=== PATIENT | female | born 1990 | race Caucasian/White ===

== ENCOUNTER → 2016-11-02 | Outpatient (CLI) | payer OTHER ==
--- NOTE | 2016-11-02 15:54 | US ---
EXAMINATION TYPE: US pelvic complete DATE OF EXAM: 11/02/2016 COMPARISON: NONE CLINICAL HISTORY: N91.2 Amenorrhea. TECHNIQUE: Transabdominal (TA) Date of LMP: June 2016 EXAM MEASUREMENTS: Uterus: 9.7 x 2.9 x 4.2 cm Endometrial Stripe: 0.9 cm Right Ovary: 3.8 x 3.4 x 2.2 cm Left Ovary: 3.3 x 3.3 x 2.5 cm 1. Uterus: Anteverted wnl 2. Endometrium: measures 0.9 cm, patient has not had a cycle since June. 3. Right Ovary: wnl 4. Left Ovary: wnl 5. Bilateral Adnexa: wnl 6. Posterior cul-de-sac: no free fluid Urinary bladder is sonolucent. Posterior wall is normal. IMPRESSION: 1. Normal pelvic ultrasound
== END | disposition home or self-care (01) ==
LOC: RADUSWWP 15:04
PROVIDERS: ATTEND Obstetrics & Gynecology
DX: N91.2 Amenorrhea, unspecified (principal)
CPT/HCPCS: 76856

== ENCOUNTER 2017-12-16 16:19 | Outpatient (CLI) | payer OTHER ==
[2017-12-16 16:57] VITALS: BP 125/94; PULSE 90; RESP 16; TEMP 98.6
[2017-12-16] MEDS ORDERED: ceFAZolin 2,000 MG in DEXTROSE/WATER 1 50ML.BAG IVPB STA (17:32)
[2017-12-16] MEDS ORDERED: LACTATED RINGERS 1,000 ML IV SCH (17:45)
[2017-12-16] MEDS ORDERED: ceFAZolin IN SWFI 2 GM/20 ML SYRINGE IVP ONE (17:45)
[2017-12-16 18:14] LABS: Appearance,Urine Clear (Clear); Bacteria,Urine Rare /hpf; Bilirubin,Urine Negative (Negative); Blood,Urine Moderate (Negative); Color,Urine Yellow; Glucose,Urine (UA) Negative (Negative); Hyaline Casts,Urine 1 /lpf (0-2); Ketones,Urine Negative (Negative); Leukocyte Esterase,Urine Trace (Negative); Mucus,Urine Rare /hpf; Nitrite,Urine Negative (Negative); Protein,Urine Trace (Negative); RBC,Urine 105 /hpf (0-5); Squamous Epithelial Cell,Urine 2 /hpf (0-4); Urobilinogen,Urine <2.0 mg/dL (<2.0); WBC,Urine 1 /hpf (0-5)
--- NOTE | 2017-12-17 11:17 | P.MSEPDOC ---
Presenting Problems - Arrival Data Date of Arrival on Unit: 12/16/17 Time of Arrival on Unit: 16:20 Mode of Transport: Wheelchair - Complaint OB-Reason for Admission/Chief Complaint: Possible Onset of Labor, Other Comment: uti, contx Medical History - Information : 2 Para: 1 Term: 1 : 0 Abortions: Spontaneous or Elective: 0 Number of Living Children: 1 - Gestational Age Gestational Age by ELMER (wks/days): 37 Weeks and 0 Days - History Complications: Other Comment: going to be a ceserean section this time due to 4th degree and shoulders got stuck with last baby Review of Systems - Review of Systems Constitutional: No problems Breast: No problems ENT: No problems Cardiovascular: No problems Respiratory: No problems Gastrointestinal: No problems Genitourinary: No problems Musculoskeletal: No problems Neurological: No problems Skin: No problems Comment: hx asthma in past Vital Signs - Temperature Temperature: 98.6 F Temperature Source: Tympanic - Pulse Right Radial Pulse Rate: 90 Pulse Assessment Method: Auscultation - Respirations Respiratory Rate: 16 Oxygen Delivery Method: Room Air - Blood Pressure Right Arm Blood Pressure: 125/94 Blood Pressure Mean: 104 Blood Pressure Source: Automatic Cuff Medical Screen Scoring (Pre) - Cervical Exam Dilation: 1-3 cm = 1 Membranes: Intact - Uterine Contractions Frequency: > 5 minutes apart = 1 Duration: > 40 seconds = 2 Intensity: Contraction palpated strong = 1 - Maternal Vital Signs Maternal Temperature: N/A Maternal Blood Pressure: N/A Signs of Preeclampsia: N/A Maternal Respirations: N/A - Pain Assessment Pain Location and Character: Left, Lower Pain Scale Used: Numeric (1 - 10) Pain Intensity: 9 Pain Description: *Acute, Sharp Pain Frequency: Intermittent Pain Behavior: Vocalization Pain Aggravating Factors: Activity, Contractions - Maternal Trauma Maternal Trauma: N/A - Assessment Baseline FHR: 120 Heart Rate - NICHD Category: Category I (Normal) = 0 NST: Reactive Position: N/A Station: N/A - Total Score Total Score (Pre): 5 - Level of Risk Level of Risk: Low (0-5) Physician Notification (Pre) - Physician Notified Physician Notified Date: 12/16/17 Physician Notified Time: 16:45 Physician/Practitioner Notifed:: nichole Spoke With: nichole New Order Received: Yes - Notification Comment Comment: iv hydration. dose of kefzol iv given. warm blanket to lt side Disposition - Disposition OB Disposition: Discharge to home Discharge Date: 12/16/17 Discharge Time: 19:15 I agree with the RN Medical Screening Exam: Yes Risk & Benefit of care provided described in d/c instruction: Yes Diagnosis: FALSE LABOR AT OR AFTER 37 COMPLETED WEEKS OF GESTATION
== END 2017-12-16 19:15 | disposition home or self-care (01) ==
LOC: FBPOP 16:19
PROVIDERS: ATTEND Obstetrics & Gynecology
DX: O47.1 False labor at or after 37 completed weeks of gestation (principal); Z3A.37 37 weeks gestation of pregnancy
CPT/HCPCS: 59025; 99214; 96361; 96365; 81001; 87086; J0690; 96366

== ENCOUNTER 2017-12-26 19:13 | Inpatient (IN) | payer OTHER ==
[2017-12-26 19:58] LABS: Appearance,Urine Cloudy (Clear); Bacteria,Urine Many /hpf; Bilirubin,Urine Negative (Negative); Blood,Urine Negative (Negative); Color,Urine Light Yellow; Glucose,Urine (UA) Negative (Negative); Ketones,Urine Negative (Negative); Leukocyte Esterase,Urine Small (Negative); Mucus,Urine Rare /hpf; Nitrite,Urine Negative (Negative); Protein,Urine 1+ (Negative); RBC,Urine 1 /hpf (0-5); Specific Gravity,Urine 1.008 (1.001-1.035); Squamous Epithelial Cell,Urine 2 /hpf (0-4); Urobilinogen,Urine <2.0 mg/dL (<2.0); WBC,Urine 3 /hpf (0-5)
[2017-12-26 20:37] LABS: Basophils % (A) 0 %; Eosinophils # (A) 0.1 k/uL (0-0.7); Eosinophils % (A) 1 %; HCT 35.4 % (34.0-46.0); HGB 11.7 gm/dL (11.4-16.0); Lymphocytes # (A) 1.6 k/uL (1.0-4.8); Lymphocytes % (A) 17 %; MCH 30.8 pg (25.0-35.0); MCHC 33.1 g/dL (31.0-37.0); MCV 93.1 fL (80.0-100.0); Mean Platelet Volume 10.1; Monocytes # (A) 0.5 k/uL (0-1.0); Monocytes % (A) 6 %; Neutrophils # (A) 6.8 k/uL (1.3-7.7); Neutrophils % (A) 74 %; Platelet Count 202 k/uL (150-450); RDW 14.5 % (11.5-15.5); WBC 9.2 k/uL (3.8-10.6)
[2017-12-26 20:45] LABS: INR 0.9 (<1.2); Prothrombin Time 9.4 sec (9.0-12.0)
[2017-12-26 20:47] LABS: ALT 33 U/L (9-52); AST 22 U/L (14-36); Blood Urea Nitrogen 8 mg/dL (7-17); LDH 399 U/L (313-618); Uric Acid 5.6 mg/dL (3.7-7.4)
[2017-12-26 21:10] LABS: Partial Thromboplastin Time 20.7 sec (22.0-30.0)
[2017-12-26] MEDS ORDERED: CITRIC ACID-SODIUM CITRATE 15 ML CUP PO ONE (21:21)
[2017-12-26] MEDS ORDERED: LACTATED RINGERS 1,000 ML IV ONE (21:21)
[2017-12-26] MEDS ORDERED: ceFAZolin IN SWFI 2 GM/20 ML SYRINGE IVP ONE (21:21)
[2017-12-26 21:56] VITALS: BMI 34.2
--- NOTE | 2017-12-26 22:14 | P.HPOB ---
History of Present Illness H&P Date: 12/26/17 This is a 27-year-old female 2 para 1 with an estimated date of confinement of 01/11/2018, estimated gestational age of 37-5/7 weeks, who presented to labor and delivery with complaints of elevated blood pressures today. She complained of feeling flush and slightly dizzy. She denied any headaches or blurry vision. Her care has been with Dr. De Jesus and has been essentially uncomplicated up until this point. She did state she was dealing with kidney stone pain last week. She denies any significant back or kidney pain at this time. She denies any regular contractions. She is scheduled for a section with tubal ligation due to the fact she had a shoulder dystocia and fourth degree laceration with her last delivery. All of her lab work is within normal limits and she has 1+ protein in her urine area labs: Hepatitis B surface antigen-negative RPR-nonreactive Rubella-immune Blood type-O+ Antibody screen-negative Hemoglobin-11.5 Toxoplasma screen-negative Random glucose-101 Quad screen-negative One hour Glucola-91 Group B streptococcus-negative Obstetrical history: . History of 1 vaginal delivery at 39 weeks with an weight of 9 pounds and fourth degree laceration with shoulder dystocia. Review of Systems Constitutional: Denies chills, Denies fever Eyes: denies blurred vision, denies pain Ears, nose, mouth and throat: Denies headache, Denies sore throat Cardiovascular: Denies chest pain, Denies shortness of breath Respiratory: Denies cough Gastrointestinal: Denies abdominal pain, Denies diarrhea, Denies nausea, Denies vomiting Genitourinary: Reports Musculoskeletal: Reports low back pain Neurological: Denies numbness, Denies weakness Psychiatric: Denies anxiety, Denies depression Endocrine: Reports flushing Past Medical History Past Medical History: No Reported History History of Any Multi-Drug Resistant Organisms: None Reported Additional Past Surgical History / Comment(s): eye surgery Past Anesthesia/Blood Transfusion Reactions: No Reported Reaction Past Psychological History: No Psychological Hx Reported Smoking Status: Never smoker Past Alcohol Use History: None Reported Past Drug Use History: None Reported - Past Family History Mother Family Medical History: Hypertension Medications and Allergies Home Medications Medication Instructions Recorded Confirmed Type Pnv,Calcium 72/Iron/Folic Acid 1 tab PO DAILY 12/16/17 12/26/17 History [ Plus Tablet] Allergies Allergy/AdvReac Type Severity Reaction Status Date / Time No Known Allergies Allergy Verified 12/26/17 19:22 Exam Osteopathic Statement: *. No significant issues noted on an osteopathic structural exam other than those noted in the History and Physical/Consult. Vital Signs Temp Pulse Resp BP Pulse Ox 12/26/17 21:51 151/93 12/26/17 21:17 154/101 12/26/17 20:26 98.0 F 101 H 17 160/101 97 Intake and Output 12/26/17 12/26/17 12/26/17 06:59 14:59 22:59 Other: Weight 84.822 kg HEENT: Within normal limits Heart: Regular rate and rhythm Lungs: Clear to auscultation bilaterally Abdomen: heart tones: Reactive Contractions: Irregular Extremities: 2+ over 4 reflexes with negative edema Results Result Diagrams: 12/26/17 20:22 12/26/17 20:22 Abnormal Lab Results - Last 24 Hours (Table) 12/26/17 12/26/17 12/26/17 Range/Units 19:25 20:22 20:22 APTT 20.7 L (22.0-30.0) sec Creatinine 0.43 L (0.52-1.04) mg/dL Urine Appearance Cloudy H (Clear) Urine Protein 1+ H (Negative) Ur Leukocyte Esterase Small H (Negative) Urine Bacteria Many H (None) /hpf Urine Mucus Rare H (None) /hpf Assessment and Plan (1) Gestational hypertension affecting second Current Visit: Yes Status: Acute Code(s): O13.9 - GESTATIONAL HTN W/O SIGNIFICANT PROTEINURIA, UNSP TRIMESTER SNOMED Code(s): 42136976 (2) Family planning Current Visit: Yes Status: Acute Code(s): Z30.09 - ENCOUNTER FOR OTH GENERAL CNSL AND ADVICE ON CONTRACEPTION SNOMED Code(s): 774586445 Plan: Will proceed to delivery since she is over 37 weeks and has a minimum of gestational hypertension versus preeclampsia. She has spoken with Dr. De Jesus and does plan to have tubal ligation at the time of delivery also. I have discussed the risks, benefits, and alternative therapies for the above- mentioned procedure and for both sedation/anesthesia as well as necessary blood products administration, if indicated, as they pertain to this patient. The patient has indicated her understanding and acceptance of the risks and procedures discussed.
[2017-12-26] MEDS ORDERED: ePHEDrine SULFATE/0.9% NACL/PF 50 MG/5 ML SYRINGE IV ONE (22:27)
[2017-12-26] MEDS ORDERED: OXYTOCIN 10 UNIT/ML 1 ML VIAL ONE (22:27)
[2017-12-26] MEDS ORDERED: KETOROLAC 30 MG/ML 1 ML VIAL ONE (22:27)
[2017-12-26] MEDS ORDERED: LACTATED RINGERS 1,000 ML BAG IV ONE (22:27)
[2017-12-26] MEDS ORDERED: ONDANSETRON 4 MG/2 ML VIAL ONE (22:27)
[2017-12-26] MEDS ORDERED: NALBUPHINE 10 MG/ML VIAL (10ML MDV) ONE (22:27)
[2017-12-26] MEDS ORDERED: MORPHINE SULFATE (PF) 0.3 MG/0.3 ML SYR ONE (22:27)
[2017-12-26] MEDS ORDERED: fentaNYL (PF) 50 MCG/ML 2 ML AMP ONE (22:27)
[2017-12-26] MEDS: LACTATED RINGERS 1,000 ML IV SCH (22:40)
[2017-12-26] MEDS ORDERED: NALBUPHINE 10 MG/ML VIAL (10ML MDV) IV PRN (23:02)
[2017-12-26] MEDS ORDERED: MORPHINE SULFATE 2 MG/ML SYRINGE IVP PRN (23:02)
[2017-12-26] MEDS ORDERED: NALOXONE 0.4 MG/ML 1 ML VIAL IV PRN (23:02)
[2017-12-26] MEDS ORDERED: diphenhydrAMINE 50 MG/ML 1 ML VIAL IVP PRN (23:02)
[2017-12-26] MEDS ORDERED: ONDANSETRON 4 MG/2 ML VIAL IVP PRN (23:02)
--- NOTE | 2017-12-26 23:26 | P.OP ---
Date of Procedure: 12/26/17 Preoperative Diagnosis: 1. Intrauterine at 37-5/7 weeks. 2. Gestational hypertension versus preeclampsia. 3. History of fourth degree laceration and shoulder dystocia with her previous delivery. 4. Family-planning. Postoperative Diagnosis: Same Procedure(s) Performed: Primary low transverse section with bilateral partial salpingectomy Anesthesia: spinal (Duramorph) Surgeon: Jennifer Meeks Print[employer] Estimator #1: Ruben Buckley Estimated Blood Loss (ml): 600 Pathology: other (Placenta, portions of right and left fallopian tubes) Condition: stable Disposition: floor Indications for Procedure: This is a 27-year-old female 2 para 1 at 37-5/7 weeks who presented to triage with complaints of elevated blood pressures. Her blood pressures ranged from 130s to 160 over 90s to 100. All of her labs were negative other than she did have 1+ protein. She denied any other symptoms other than some flushing and lightheadedness. Since she is over 37 weeks with these blood pressures, the decision is made to proceed with delivery. She had already discussed with Dr. De Jesus doing a section because of her history of shoulder dystocia and fourth degree laceration. She also had discussed with him regarding a tubal ligation. I have discussed the risks, benefits, and alternative therapies for the above- mentioned procedure and for both sedation/anesthesia as well as necessary blood products administration, if indicated, as they pertain to this patient. The patient has indicated her understanding and acceptance of the risks and procedures discussed. Operative Findings: A viable male infant is noted in the vertex presentation with scores of 8 at 1 minute and 9 at 5 minutes and infant weight of 7 lbs. 0 oz. Normal uterus tubes and ovaries are noted. Description of Procedure: The patient is taken to the operating room where she is placed in the dorsal supine position with leftward tilt after spinal Duramorph anesthesia is given. She is prepped and draped in the normal sterile fashion. Skin was tested and found to be adequately anesthetized. A Pfannenstiel skin incision was made with a scalpel. A second knife was used to carry the incision down to the underlying layer of fascia. The fascia was nicked in the midline with a scalpel and then extended laterally bilaterally with Flynn scissors. The anterior lip of the fascia was grasped with 2 Gianni clamps and then dissected off the underlying rectus muscle in the midline with Flynn scissors. The inferior aspect of the fascial incision was grasped with 2 Gianni clamps and dissected off the underlying rectus muscle and the midline with Flynn scissors. Next the peritoneum layer was tented up with 2 hemostats and then entered sharply with the scalpel. The incision is extended superiorly and inferiorly with Metzenbaum scissors. Next a DeLee retractor is placed. The vesicouterine peritoneum is entered sharply with Metzenbaum scissors and extended laterally bilaterally with Metzenbaum scissors and then the bladder flap is pushed inferiorly. The lower uterine segment is incised in transverse fashion with the scalpel and then bluntly entered with a hemostat. Clear fluid is noted. The incision was then extended laterally bilaterally with 2 fingers. Next the infant's head is delivered through the incision. Nose and mouth are bulb suctioned. The remainder of the is easily delivered and placed on mother 's abdomen. Cord is clamped and cut. is taken to warmer by nursing staff. Uterine fundus is gently massaged and placenta is delivered manually. Uterus is exteriorized and cleared of all clots and debris. Uterine incision is closed with 0 Vicryl suture in a running locked fashion. A second layer of 0 Vicryl suture is used in a running fashion for hemostasis. Several interrupted stitches are placed for hemostasis. Once adequate hemostasis as assured, the vesicouterine peritoneum is reapproximated with 2-0 Vicryl suture in a running fashion. The right fallopian tube is grasped in the midportion with a hemostat. The mesosalpinx is entered with Bovie cautery. 0 Vicryl suture is tied 2 times around both the proximal and distal portion of the tube. The knuckle of the tube is then removed with Metzenbaum scissors. The ends of the tubes are cauterized with Bovie cautery. Next the same procedure is carried out on the left fallopian tube. Excellent hemostasis is noted. Posterior cul-de-sac is suctioned of all clots and debris. Uterus is returned to the abdomen. Incision is noted to be hemostatic. Both tubal segments are noted to be hemostatic. Peritoneal layer is closed with 0 Vicryl suture in a running fashion. Muscle layer is reapproximated with 0 Vicryl suture in interrupted fashion. Fascia layer is then closed with 0 PDS suture with 2 sutures meeting in the midline and the knots buried in either side and in the midline. The subcutaneous tissue was then closed with 2-0 Vicryl suture. Skin layer was then closed with jose. All sponge and needle counts are correct. The patient is taken to recovery room in stable condition.
--- NOTE | 2017-12-26 23:28 | P.MSEPDOC ---
Presenting Problems - Arrival Data Date of Arrival on Unit: 12/26/17 Time of Arrival on Unit: 21:17 Mode of Transport: Ambulatory - Complaint OB-Reason for Admission/Chief Complaint: PIH Comment: Presents to triage for evaluation of blood pressure after getting a blood pressure of 135/90 at home. Complains of mild dizziness. Medical History - Information : 2 Para: 1 Term: 1 : 0 Abortions: Spontaneous or Elective: 0 Number of Living Children: 1 - Gestational Age Gestational Age by ELMER (wks/days): 37 Weeks and 5 Days Review of Systems - Review of Systems Constitutional: No problems Breast: No problems ENT: No problems Cardiovascular: No problems Respiratory: No problems Gastrointestinal: No problems Genitourinary: No problems Musculoskeletal: No problems Neurological: Dizziness Skin: No problems Vital Signs - Temperature Temperature: 98.0 F Temperature Source: Temporal Artery Scan - Pulse Pulse Oximetery Pulse Rate: 101 Pulse Assessment Method: Pulse Oximetry - Respirations Respiratory Rate: 17 Oxygen Delivery Method: Room Air O2 Sat by Pulse Oximetry: 97 - Blood Pressure Right Arm Blood Pressure: 151/93 Blood Pressure Mean: 112 Blood Pressure Source: Automatic Cuff Medical Screen Scoring (Pre) - Cervical Exam Dilation: Exam Deferred Effacement: Exam Deferred Membranes: Intact - Uterine Contractions Frequency: > 5 minutes apart = 1 Duration: N/A Intensity: N/A - Maternal Vital Signs Maternal Temperature: N/A Maternal Blood Pressure: Systolic >139 = 2 Signs of Preeclampsia: N/A Maternal Respirations: N/A - Pain Assessment Pain Scale Used: Numeric (1 - 10) Pain Intensity: 0 - Maternal Trauma Maternal Trauma: N/A - Assessment Baseline FHR: 130 Heart Rate - NICHD Category: Category I (Normal) = 0 NST: Reactive Position: N/A Station: N/A - Total Score Total Score (Pre): 3 - Level of Risk Level of Risk: Low (0-5) Physician Notification (Pre) - Physician Notified Physician Notified Date: 12/26/17 Physician Notified Time: 19:13 Physician/Practitioner Notifed:: Constantino Spoke With: Constantino New Order Received: Yes - Notification Comment Comment: [facility] labs Medical Screen Scoring (Post) - Cervical Exam Dilation: Exam Deferred Effacement: Exam Deferred Membranes: Intact - Uterine Contractions Frequency: > 5 minutes apart = 1 Duration: N/A Intensity: N/A - Maternal Vital Signs Maternal Temperature: N/A Maternal Blood Pressure: Systolic >139 = 2 Signs of Preeclampsia: N/A Maternal Respirations: N/A - Pain Assessment Pain Scale Used: Numeric (1 - 10) Pain Intensity: 0 - Maternal Trauma Maternal Trauma: N/A - Assessment Heart Rate: 130 Heart Rate - NICHD Category: Category I (Normal) = 0 NST: Reactive Position: N/A Station: N/A - Total Score Total Score (Post): 3 - Post Treatment Level of Risk Post Treatment Level of Risk: Low (0-5) Physician Notification (Post) - Physician Notified Physician Notified Date: 12/26/17 Physician Notified Time: 21:17 Physician/Practitioner Notified:: Constantino Spoke With: Constantino Hackett Order Received: Yes (prep for delivery) Disposition - Disposition OB Disposition: Admit I agree with the RN Medical Screening Exam: Yes Risk & Benefit of care provided described in d/c instruction: Yes Diagnosis: GESTATIONAL HTN W/O SIGNIFICANT PROTEINURIA, THIRD TRIMESTER
[2017-12-27] MEDS ORDERED: ACETAMINOPHEN IV (For NPO) 1,000 MG in EMPTY BAG 1 BAG IVPB ONE (01:02)
[2017-12-27] MEDS ORDERED: ACETAMINOPHEN TAB 325 MG TAB PO PRN (04:11)
[2017-12-27] MEDS ORDERED: diphenhydrAMINE 25 MG CAP PO PRN (04:11)
[2017-12-27] MEDS ORDERED: ONDANSETRON 4 MG/2 ML VIAL IVP PRN (04:11)
[2017-12-27] MEDS ORDERED: LANOLIN CREAM 5 GM TUBE TOPICAL PRN (04:11)
[2017-12-27] MEDS ORDERED: OXYTOCIN 20 UNITS/1000 ML NS 1,000 ML IV SCH (04:11)
[2017-12-27] MEDS ORDERED: IBUPROFEN 600 MG TAB PO PRN (04:11)
[2017-12-27] MEDS ORDERED: diphenhydrAMINE 50 MG/ML 1 ML VIAL IVP PRN ×2 (04:11)
[2017-12-27] MEDS ORDERED: NALOXONE 0.4 MG/ML 1 ML VIAL IV PRN (04:11)
[2017-12-27] MEDS ORDERED: ZOLPIDEM 5 MG TAB PO PRN (04:11)
[2017-12-27] MEDS ORDERED: METOCLOPRAMIDE 5 MG/ML 2 ML VIAL IVP PRN (04:11)
[2017-12-27] MEDS ORDERED: KETOROLAC 30 MG/ML 1 ML VIAL IVP PRN (04:11)
[2017-12-27] MEDS ORDERED: LABETALOL 200 MG TAB PO PRN (04:11)
[2017-12-27] MEDS ORDERED: diphenhydrAMINE 50 MG CAP PO PRN (04:11)
[2017-12-27] MEDS ORDERED: HYDROcodone/APAP 5-325MG 1 EACH TAB PO PRN (04:11)
[2017-12-27] MEDS ORDERED: SIMETHICONE 80 MG CHEWABLE PO PRN (04:11)
[2017-12-27] MEDS: LACTATED RINGERS 1,000 ML IV SCH ×3 (06:39→22:00)
[2017-12-27 07:55] LABS: Basophils % (A) 0 %; Eosinophils % (A) 0 %; HCT 32.1 % (34.0-46.0); HGB 10.6 gm/dL (11.4-16.0); Lymphocytes # (A) 0.8 k/uL (1.0-4.8); Lymphocytes % (A) 8 %; MCHC 33.1 g/dL (31.0-37.0); MCV 93.6 fL (80.0-100.0); Mean Platelet Volume 9.8; Monocytes # (A) 0.6 k/uL (0-1.0); Monocytes % (A) 6 %; Neutrophils # (A) 8.9 k/uL (1.3-7.7); Neutrophils % (A) 85 %; Platelet Count 170 k/uL (150-450); RBC 3.43 m/uL (3.80-5.40); RDW 14.5 % (11.5-15.5); WBC 10.5 k/uL (3.8-10.6)
[2017-12-27] MEDS: KETOROLAC 30 MG/ML 1 ML VIAL IVP PRN ×2 (08:23→14:40)
[2017-12-27] MEDS: SENNOSIDES-DOCUSATE SODIUM 1 EACH TAB PO SCH ×2 (08:23→20:20)
--- NOTE | 2017-12-27 08:47 | P.PNOBGPC ---
Subjective - Subjective Principal diagnosis: Post op day 1: Gestational hypertension Interval history: Overall Nunu is doing well this morning. Her blood pressure seems to be slightly improved with less blood pressure in the 140/78 range she voices no other complaints other than being tired and overall she is doing well. Vital signs are otherwise stable. Patient reports: Reports appetite normal, Reports voiding normally, Reports pain well controlled, Reports ambulating normally [place]: doing well Objective - Vital Signs Latest vital signs: Vital Signs Temp Pulse Resp BP Pulse Ox 12/27/17 08:19 18 12/27/17 06:00 16 12/27/17 04:00 98.2 F 95 17 143/78 97 12/27/17 02:02 16 12/27/17 01:28 98.2 F 78 15 158/100 100 12/27/17 00:58 73 15 150/94 100 12/27/17 00:28 76 17 153/91 100 12/27/17 00:13 72 18 132/84 100 12/27/17 00:02 15 95 12/26/17 23:58 83 18 145/93 95 12/26/17 23:43 90 16 142/86 98 12/26/17 23:28 98.0 F 101 H 17 151/93 97 12/26/17 23:28 96.7 F L 83 17 142/86 98 12/26/17 21:51 151/93 12/26/17 21:17 154/101 12/26/17 20:26 98.0 F 101 H 17 160/101 97 Intake and Output 12/26/17 12/27/17 12/27/17 22:59 06:59 14:59 Output Total 500 Balance -500 Output: Urine 500 Uretheral (Z[place]ala) 100 Other: Voiding Method Indwelling Catheter Weight 84.822 kg - Exam Lungs: bilateral: normal Chest: Normal S1, Normal S2 Extremities: Present: normal Abdomen: Present: normal appearance, soft. Absent: distention, tenderness Incision: Present: normal, dry, intact Uterus: Present: normal, firm - Labs Labs: Abnormal Lab Results - Last 24 Hours (Table) 12/26/17 12/26/17 12/26/17 Range/Units 19:25 20:22 20:22 RBC (3.80-5.40) m/uL Hgb (11.4-16.0) gm/dL Hct (34.0-46.0) % Neutrophils # (1.3-7.7) k/uL Lymphocytes # (1.0-4.8) k/uL APTT 20.7 L (22.0-30.0) sec Creatinine 0.43 L (0.52-1.04) mg/dL Urine Appearance Cloudy H (Clear) Urine Protein 1+ H (Negative) Ur Leukocyte Esterase Small H (Negative) Urine Bacteria Many H (None) /hpf Urine Mucus Rare H (None) /hpf 12/27/17 Range/Units 07:21 RBC 3.43 L (3.80-5.40) m/uL Hgb 10.6 L (11.4-16.0) gm/dL Hct 32.1 L (34.0-46.0) % Neutrophils # 8.9 H (1.3-7.7) k/uL Lymphocytes # 0.8 L (1.0-4.8) k/uL APTT (22.0-30.0) sec Creatinine (0.52-1.04) mg/dL Urine Appearance (Clear) Urine Protein (Negative) Ur Leukocyte Esterase (Negative) Urine Bacteria (None) /hpf Urine Mucus (None) /hpf
--- NOTE | 2017-12-27 11:05 | P.PN ---
Progress Note - Text Anesthesia POD 1. Patient is status post section under spinal anesthesia with intra-thecal preservative free morphine 300 g. Mild pruritus, GERD post-op analgesia, and no headache or other complication.
[2017-12-27 21:27] VITALS: RESP 16
[2017-12-28] MEDS: HYDROcodone/APAP 7.5-325MG 1 EACH TAB PO PRN ×2 (04:02→12:02)
[2017-12-28] MEDS: SENNOSIDES-DOCUSATE SODIUM 1 EACH TAB PO SCH (07:42)
[2017-12-28 09:34] VITALS: BP 132/85; PULSE 92; TEMP 98.9
--- NOTE | 2017-12-28 12:19 | P.DS ---
Providers Date of admission: 12/26/17 21:39 Expected date of discharge: 12/28/17 Attending physician: Miguel De Jesus Primary care physician: Stated None Hospital Course: Nunu is doing very well postop day 2 from a repeat section. Her vital signs are stable and she is afebrile. Heart regular, lungs clear, extremities without pain. Abdomen is soft, incision is clean dry and intact. Uterus is firm below the umbilicus. She voices no complaints. Prescription for Motrin and [place] were sent to the pharmacy as well as a prescription for a breast pump. She'll follow me on Tuesday for blood pressure check and removal of jose. All the questions are answered for her. Discharged home in stable and satisfactory condition. Patient Condition at Discharge: Good Plan - Discharge Summary New Discharge Prescriptions: New HYDROcodone/APAP 5-325MG [[place] 5-325] 1 tab PO Q4HR PRN #30 tab PRN Reason: Pain Ibuprofen [Motrin] 600 mg PO Q6HR PRN #30 tab PRN Reason: Pain No Action Pnv,Calcium 72/Iron/Folic Acid [ Plus Tablet] 1 tab PO DAILY Discharge Medication List Pnv,Calcium 72/Iron/Folic Acid [ Plus Tablet] 1 tab PO DAILY 12/16/17 [ History] HYDROcodone/APAP 5-325MG [[place] 5-325] 1 tab PO Q4HR PRN #30 tab 12/28/17 [Rx] Ibuprofen [Motrin] 600 mg PO Q6HR PRN #30 tab 12/28/17 [Rx] Follow up Appointment(s)/Referral(s): Miguel De Jesus DO [Doctor of Osteopathic Medicine] - 1-2 Days Activity/Diet/Wound Care/Special Instructions: No heavy lifting, limit stairs and driving and pelvic rest. If any high temperatures, heavy bleeding, or severe pain call my office Discharge Disposition: HOME SELF-CARE
== END 2017-12-28 14:00 | disposition home or self-care (01) | DRG 765 ==
LOC: FBPOP 19:13 → 4FBP 21:39
PROVIDERS: ADMIT Obstetrics & Gynecology; ATTEND Obstetrics & Gynecology
PROC: 0UB70ZZ Excision of Bilateral Fallopian Tubes, Open Approach (ICD-10-PCS; 2017-12-26)
PROC: 10D00Z1 Extraction of Products of Conception, Low, Open Approach (ICD-10-PCS; principal; 2017-12-26 22:46)
DX: O13.4 Gestational [pregnancy-induced] hypertension without significant proteinuria, complicating childbirth (principal); O26.833 Pregnancy related renal disease, third trimester; O99.62 Diseases of the digestive system complicating childbirth; N20.0 Calculus of kidney; O34.211 Maternal care for low transverse scar from previous cesarean delivery; K21.9 Gastro-esophageal reflux disease without esophagitis; O14.94 Unspecified pre-eclampsia, complicating childbirth; O99.72 Diseases of the skin and subcutaneous tissue complicating childbirth; L29.9 Pruritus, unspecified; Z37.0 Single live birth; Z3A.37 37 weeks gestation of pregnancy; Z82.49 Family history of ischemic heart disease and other diseases of the circulatory system
CPT/HCPCS: 59025; 81001; 82565; 83615; 84450; 84460; 84520; 84550; 85025; 85610; 85730; 86850; 86900; 86901; 88302; 88307; 99215

== ENCOUNTER 2019-10-06 05:02 | Emergency (ER) | payer OTHER ==
[2019-10-06 05:11] VITALS: RESP 18
[2019-10-06] MEDS ORDERED: SODIUM CHLORIDE 0.9% 1,000 ML IV STA (05:38)
--- NOTE | 2019-10-06 05:41 | ED ---
Abdominal Pain HPI - General Chief Complaint: Abdominal Pain Stated Complaint: Nausea, vomiting Time Seen by Provider: 10/06/19 05:30 Source: EMS Mode of arrival: EMS Limitations: no limitations - History of Present Illness MD Complaint: abdominal pain -: hour(s) Location: epigastric Radiation: none Migration to: no migration Severity: moderate Quality: cramping Consistency: intermittent Improves With: vomiting Worsens With: nothing Associated Symptoms: nausea, vomiting, diarrhea - Related Data LMP (females 10-50): last week Home Medications Medication Instructions Recorded Confirmed Pnv,Calcium 72/Iron/Folic Acid 1 tab PO DAILY 12/16/17 12/26/17 [ Plus Tablet] Previous Rx's Medication Instructions Recorded HYDROcodone/APAP 5-325MG [[place] 1 tab PO Q4HR PRN #30 tab 12/28/17 5-325] Ibuprofen [Motrin] 600 mg PO Q6HR PRN #30 tab 12/28/17 Ondansetron Odt [Zofran ODT] 4 mg PO Q8HR PRN #10 tab 10/06/19 Allergies Allergy/AdvReac Type Severity Reaction Status Date / Time No Known Allergies Allergy Verified 12/26/17 19:22 Review of Systems ROS Statement: Those systems with pertinent positive or pertinent negative responses have been documented in the HPI. ROS Other: All systems not noted in ROS Statement are negative. Constitutional: Denies: fever, chills Respiratory: Denies: cough, dyspnea Cardiovascular: Denies: chest pain, palpitations, edema Gastrointestinal: Reports: abdominal pain, nausea, vomiting, diarrhea. Denies: constipation, hematemesis, melena, hematochezia Genitourinary: Denies: dysuria, hematuria Musculoskeletal: Denies: back pain Skin: Denies: rash Neurological: Denies: headache, weakness, numbness Past Medical History Past Medical History: No Reported History History of Any Multi-Drug Resistant Organisms: None Reported Past Surgical History: Section, Tubal Ligation Additional Past Surgical History / Comment(s): eye surgery Past Anesthesia/Blood Transfusion Reactions: No Reported Reaction Past Psychological History: Anxiety, Depression, PTSD Smoking Status: Smoker, current status unknown Past Alcohol Use History: Occasional Past Drug Use History: Marijuana - Past Family History Mother Family Medical History: Hypertension General Exam Limitations: no limitations General appearance: alert, in no apparent distress Head exam: Present: atraumatic, normocephalic Eye exam: Present: normal appearance. Absent: scleral icterus, conjunctival injection ENT exam: Present: normal oropharynx Respiratory exam: Present: normal lung sounds bilaterally. Absent: respiratory distress, wheezes, rales, rhonchi, stridor Cardiovascular Exam: Present: regular rate, normal rhythm, normal heart sounds. Absent: systolic murmur, diastolic murmur, rubs, gallop GI/Abdominal exam: Present: soft. Absent: distended, tenderness, guarding, rebound, rigid, mass Extremities exam: Present: normal inspection, normal capillary refill. Absent: pedal edema, calf tenderness Back exam: Present: normal inspection. Absent: CVA tenderness (R), CVA tenderness (L) Neurological exam: Present: alert Skin exam: Present: warm, dry, intact, normal color. Absent: rash Course Vital Signs 10/06/19 05:04 Temperature 97.5 F L Pulse Rate 77 Respiratory 18 Rate Blood Pressure 113/88 O2 Sat by Pulse 99 Oximetry Medical Decision Making - Lab Data Result diagrams: 10/06/19 05:14 10/06/19 05:14 Lab Results 10/06/19 10/06/19 10/06/19 Range/Units 05:14 05:14 05:21 WBC 12.8 H (3.8-10.6) k/uL RBC 4.34 (3.80-5.40) m/uL Hgb 13.2 (11.4-16.0) gm/dL Hct 40.1 (34.0-46.0) % MCV 92.6 (80.0-100.0) fL MCH 30.4 (25.0-35.0) pg MCHC 32.9 (31.0-37.0) g/dL RDW 13.0 (11.5-15.5) % Plt Count 287 (150-450) k/uL Neutrophils % 81 % Lymphocytes % 13 % Monocytes % 3 % Eosinophils % 1 % Basophils % 0 % Neutrophils # 10.3 H (1.3-7.7) k/uL Lymphocytes # 1.7 (1.0-4.8) k/uL Monocytes # 0.4 (0-1.0) k/uL Eosinophils # 0.2 (0-0.7) k/uL Basophils # 0.0 (0-0.2) k/uL Sodium 136 L (137-145) mmol/L Potassium 4.1 (3.5-5.1) mmol/L Chloride 103 (98-107) mmol/L Carbon Dioxide 19 L (22-30) mmol/L Anion Gap 14 mmol/L BUN 12 (7-17) mg/dL Creatinine 0.59 (0.52-1.04) mg/dL Est GFR (CKD-EPI)AfAm >90 (>60 ml/min/1.73 sqM) Est GFR (CKD-EPI)NonAf >90 (>60 ml/min/1.73 sqM) Glucose 134 H (74-99) mg/dL Calcium 9.9 (8.4-10.2) mg/dL Total Bilirubin 0.6 (0.2-1.3) mg/dL AST 29 (14-36) U/L ALT 24 (4-34) U/L Alkaline Phosphatase 97 (38-126) U/L Total Protein 8.1 (6.3-8.2) g/dL Albumin 4.8 (3.5-5.0) g/dL Amylase 52 (30-110) U/L Lipase 79 (23-300) U/L Urine Color Yellow Urine Appearance Cloudy H (Clear) Urine pH 8.5 H (5.0-8.0) Ur Specific [place] 1.021 (1.001-1.035) Urine Protein 2+ H (Negative) Urine Glucose (UA) Negative (Negative) Urine Ketones 1+ H (Negative) Urine Blood Negative (Negative) Urine Nitrite Negative (Negative) Urine Bilirubin Negative (Negative) Urine Urobilinogen <2.0 (<2.0) mg/dL Ur Leukocyte Esterase Trace H (Negative) Urine WBC 2 (0-5) /hpf Ur Squamous Epith Cells 14 H (0-4) /hpf Urine Bacteria Rare H (None) /hpf Urine Mucus Rare H (None) /hpf Urine HCG, Qual (Not Detectd) 10/06/19 Range/Units 05:21 WBC (3.8-10.6) k/uL RBC (3.80-5.40) m/uL Hgb (11.4-16.0) gm/dL Hct (34.0-46.0) % MCV (80.0-100.0) fL MCH (25.0-35.0) pg MCHC (31.0-37.0) g/dL RDW (11.5-15.5) % Plt Count (150-450) k/uL Neutrophils % % Lymphocytes % % Monocytes % % Eosinophils % % Basophils % % Neutrophils # (1.3-7.7) k/uL Lymphocytes # (1.0-4.8) k/uL Monocytes # (0-1.0) k/uL Eosinophils # (0-0.7) k/uL Basophils # (0-0.2) k/uL Sodium (137-145) mmol/L Potassium (3.5-5.1) mmol/L Chloride (98-107) mmol/L Carbon Dioxide (22-30) mmol/L Anion Gap mmol/L BUN (7-17) mg/dL Creatinine (0.52-1.04) mg/dL Est GFR (CKD-EPI)AfAm (>60 ml/min/1.73 sqM) Est GFR (CKD-EPI)NonAf (>60 ml/min/1.73 sqM) Glucose (74-99) mg/dL Calcium (8.4-10.2) mg/dL Total Bilirubin (0.2-1.3) mg/dL AST (14-36) U/L ALT (4-34) U/L Alkaline Phosphatase (38-126) U/L Total Protein (6.3-8.2) g/dL Albumin (3.5-5.0) g/dL Amylase (30-110) U/L Lipase (23-300) U/L Urine Color Urine Appearance (Clear) Urine pH (5.0-8.0) Ur Specific [place] (1.001-1.035) Urine Protein (Negative) Urine Glucose (UA) (Negative) Urine Ketones (Negative) Urine Blood (Negative) Urine Nitrite (Negative) Urine Bilirubin (Negative) Urine Urobilinogen (<2.0) mg/dL Ur Leukocyte Esterase (Negative) Urine WBC (0-5) /hpf Ur Squamous Epith Cells (0-4) /hpf Urine Bacteria (None) /hpf Urine Mucus (None) /hpf Urine HCG, Qual Not Detected (Not Detectd) Disposition Clinical Impression: Gastritis Disposition: HOME SELF-CARE Condition: Good Prescriptions: Ondansetron Odt [Zofran ODT] 4 mg PO Q8HR PRN #10 tab PRN Reason: Nausea Is patient prescribed a controlled substance at d/c from ED?: No Referrals: Puma Garcia DO [Primary Care Provider] - 1-2 days
[2019-10-06 05:51] LABS: Basophils % (A) 0 %; Eosinophils # (A) 0.2 k/uL (0-0.7); Eosinophils % (A) 1 %; HCT 40.1 % (34.0-46.0); HGB 13.2 gm/dL (11.4-16.0); Lymphocytes # (A) 1.7 k/uL (1.0-4.8); Lymphocytes % (A) 13 %; MCH 30.4 pg (25.0-35.0); MCHC 32.9 g/dL (31.0-37.0); MCV 92.6 fL (80.0-100.0); Mean Platelet Volume 8.6; Monocytes # (A) 0.4 k/uL (0-1.0); Monocytes % (A) 3 %; Neutrophils # (A) 10.3 k/uL (1.3-7.7); Neutrophils % (A) 81 %; Platelet Count 287 k/uL (150-450); RBC 4.34 m/uL (3.80-5.40); WBC 12.8 k/uL (3.8-10.6)
[2019-10-06 05:54] LABS: Appearance,Urine Cloudy (Clear); Bacteria,Urine Rare /hpf; Bilirubin,Urine Negative (Negative); Blood,Urine Negative (Negative); Color,Urine Yellow; Glucose,Urine (UA) Negative (Negative); Ketones,Urine 1+ (Negative); Leukocyte Esterase,Urine Trace (Negative); Mucus,Urine Rare /hpf; Nitrite,Urine Negative (Negative); PH, Urine 8.5 (5.0-8.0); Protein,Urine 2+ (Negative); Specific Gravity,Urine 1.021 (1.001-1.035); Squamous Epithelial Cell,Urine 14 /hpf (0-4); Urobilinogen,Urine <2.0 mg/dL (<2.0); WBC,Urine 2 /hpf (0-5)
[2019-10-06 06:01] LABS: ALT 24 U/L (4-34); AST 29 U/L (14-36); African American GFR (CKD) >90 (>60 ml/min/1.73 sqM); Albumin 4.8 g/dL (3.5-5.0); Alkaline Phosphatase 97 U/L (38-126); Amylase 52 U/L (30-110); Anion Gap 14 mmol/L; Blood Urea Nitrogen 12 mg/dL (7-17); Calcium 9.9 mg/dL (8.4-10.2); Carbon Dioxide 19 mmol/L (22-30); Chloride 103 mmol/L (98-107); Glucose 134 mg/dL (74-99); Non-African American GFR(CKD) >90 (>60 ml/min/1.73 sqM); Potassium 4.1 mmol/L (3.5-5.1); Sodium 136 mmol/L (137-145); Total Bilirubin 0.6 mg/dL (0.2-1.3); Total Protein 8.1 g/dL (6.3-8.2)
[2019-10-06 06:50] VITALS: BP 116/72; PULSE 80; TEMP 98
== END 2019-10-06 06:50 | disposition home or self-care (01) ==
LOC: EC 05:02
DX: K29.70 Gastritis, unspecified, without bleeding (principal); Z98.890 Other specified postprocedural states; Z98.51 Tubal ligation status
CPT/HCPCS: 36415; 80053; 81001; 81025; 82150; 83690; 85025; 96374; 99284